=== PATIENT | male | born 1955 | race African-American/Black ===

== ENCOUNTER 2023-08-29 15:15 | Emergency (ER) | payer OTHER ==
[~2023-08-29] VITALS: Ht 172.7 cm; Wt 86.0 kg
[2023-08-29 15:35] VITALS: O2SAT 99
[2023-08-29] MEDS: TETRACAINE 0.5% OPHTH DROPS 4ML RIGHTEYE ONE (17:38)
[2023-08-29] MEDS: FLUORESCEIN SODIUM 1MG/STRIP RIGHTEYE ONE (17:38)
[2023-08-29] MEDS ORDERED: KETO-98 RIGHTEYE (19:11)
[2023-08-29 19:24] VITALS: BP 128/73; PULSE 90; RESP 17; TEMP 98.5
== END 2023-08-29 19:25 | disposition home or self-care (01) ==
LOC: ER 15:15
DX: H10.11 Acute atopic conjunctivitis, right eye (principal)
CPT/HCPCS: 99283